=== PATIENT | male | born 1995 | race Caucasian/White ===

== ENCOUNTER 2017-03-23 14:00 | Outpatient (POV) | payer OTHER, BC, SELFPAY | END 2017-03-23 15:24 | disposition home or self-care (01) | PROVIDERS: PCP Podiatrist; Visit Provider Podiatrist | DX: S92.244D Nondisplaced fracture of medial cuneiform of right foot, subsequent encounter for fracture with routine healing (principal); S92.314D Nondisplaced fracture of first metatarsal bone, right foot, subsequent encounter for fracture with routine healing; S92.324D Nondisplaced fracture of second metatarsal bone, right foot, subsequent encounter for fracture with routine healing | CPT/HCPCS: 99213; 73630 ==

== ENCOUNTER 2017-04-13 16:15 | Outpatient (POV) | payer OTHER, BC, SELFPAY | END 2017-04-13 16:38 | disposition home or self-care (01) | PROVIDERS: Visit Provider Podiatrist | DX: S92.224D Nondisplaced fracture of lateral cuneiform of right foot, subsequent encounter for fracture with routine healing (principal); S92.314D Nondisplaced fracture of first metatarsal bone, right foot, subsequent encounter for fracture with routine healing; S92.324D Nondisplaced fracture of second metatarsal bone, right foot, subsequent encounter for fracture with routine healing | CPT/HCPCS: 99212; 73630 ==

== ENCOUNTER 2021-06-10 06:50 | Emergency (ER) | payer OTHER, SELFPAY ==
[2021-06-10] VITALS (8 sets, daily range): BP systolic 109–137; BP diastolic 52–78; PULSE 67–84; RESP 16–22; TEMP 36.8; O2SAT 97–100; BMI 22.2
--- NOTE | 2021-06-10 07:04 | CT_ITS ---
FINAL REPORT TECHNIQUE: 5 mm axial images were obtained from the lung bases to the pubic symphysis without contrast. Coronal reformatted images were performed and reviewed.This study was performed with techniques to keep radiation doses as low as reasonably achievable, (ALARA). Individualized dose reduction techniques using automated exposure control or adjustment of mA and/or kV according to the patient's size were employed. CLINICAL HISTORY: belly pain, LLQ PAIN, VOMITING FINDINGS: There is dependent atelectasis in the lung bases. There are no effusions. The gallbladder is unremarkable. The liver, spleen, adrenal glands, and pancreas have normal contours. The right kidney demonstrates no stones or hydronephrosis. The left kidney demonstrates several punctate stones throughout the kidney. There is mild fullness of the left renal pelvis. There is no hydroureter. There is a 4.5 mm stone in the left pelvis on image 89 of the axial images and 33 of the coronal images. This is indeterminate. This lies along the course of the ureter though without enlargement. The bladder is decompressed. There is some bladder wall thickening. The GI tract demonstrates no obstruction. The small bowel appears unremarkable. There is moderate to large amount of stool throughout the colon. The appendix is normal. There is no free air, free fluid, or inflammatory process. There is a tiny umbilical hernia containing fat. IMPRESSION: 1. The solid organs have a normal unenhanced appearance. 2. The gallbladder and appendix are normal. 3. There is no hydronephrosis. There are punctate stones in the left kidney. There is a 4.5 mm stone in the left mid pelvis. This lies along the course of the ureter. However, there is no ureteral enlargement. A ureteral stone is not excluded. 4. Bladder wall thickening 5. There is a moderate to large amount of stool throughout the colon. There is no obstruction. The small bowel is unremarkable. 6. There is no free air, free fluid, or inflammatory process. Authenticated by Sumeet Franco MD on 06/10/2021 07:51:19 AM [facility]
[2021-06-10 07:22] LABS: Basophils # 0.2 K/mm3 (0-0.2); Basophils % 1.6 % (0.1-2.0); Eosinophils # 0.6 K/mm3 (0.0-0.4); Hematocrit 45.7 % (42.0-52.0); Hemoglobin 15.2 g/dL (14.1-18.0); Lymphocytes # 2.1 K/mm3 (0.7-4.5); Lymphocytes % 18.9 % (10-50); Mean Corpuscular HGB Conc 33.2 g/dL (31.8-35.4); Mean Corpuscular Hemoglobin 28.7 pg (27.0-31.2); Mean Corpuscular Volume 86.4 fl (80-94); Monocytes # 0.6 K/mm3 (0.1-1.0); Monocytes % 5.6 % (1.7-9.3); Neutrophils # 7.6 K/mm3 (1.8-7.8); Neutrophils % 68.9 % (37.0-80.0); Platelet Count 297 K/mm3 (142-424); Red Cell Distribution Width 12.8 % (11.5-17.5); White Blood Count 11.1 K/mm3 (4.8-10.8)
--- NOTE | 2021-06-10 07:22 | PC.NURSE ---
pt to ct
[2021-06-10 07:23] LABS: Chloride 104 mmol/L (98-107); Potassium 4.3 mmoL/L (3.5-5.1); Sodium 137 mmol/L (136-145)
[2021-06-10 07:25] LABS: Blood Urea Nitrogen 16 mg/dl (9-20); Creatinine Clearance Estimated 126 mL/min (50-200); Estimated Glomerular Filt Rate 104 ml/min (>60); GFR (African American) 125 ML/MIN (>60)
[2021-06-10 07:26] LABS: Alanine Aminotransferase 88 U/L (12-78); Albumin Level 4.7 g/dl (3.5-5.0); Albumin/Globulin Ratio 1.7 (1.1-1.8); Alkaline Phosphatase 70 U/L (38-126); Amylase 84 U/L (30-110); Anion Gap 11.3 mEq/L (5-15); Aspartate Amino Transferase 50 U/L (17-59); Bilirubin,Total 0.4 mg/dl (0.2-1.3); Carbon Dioxide 26 mmol/L (22.0-30.0); Globulin 2.7 g/dL (1.3-3.2); Total Protein,Serum 7.4 g/dl (6.3-8.2)
[2021-06-10 07:27] LABS: Calcium 8.9 mg/dl (8.4-10.2); Glucose 115 mg/dl (74-100); Lipase 60 U/L (23-300)
[2021-06-10 07:32] LABS: C-Reactive Protein 0.6 mg/L (0-4)
--- NOTE | 2021-06-10 07:38 | HMH.EDNVD ---
ED Disposition Clinical Impression: Renal colic on left side Disposition: Home, Self-Care Condition on Discharge: Good Instructions: Kidney Stones -- Adult Additional Instructions: fluids and use meds and see urology Prescriptions: Ketorolac Tromethamine [Toradol 10mg tablet] 10 mg PO Q6HP PRN #10 tab MDD 40mg/day PRN Reason: Moderate To Severe Pain Transmission Status: Pending to [facility] Referrals: Pa Edgar MD [Primary Care Provider] - Feliberto Mukherjee MD [Staff Physician] - - Critical Care Critical Care Time: No Attestation: On 06/10/21, the high probability of a clinically significant, sudden or life threatening deterioration of the following system(s) required my full and direct attention, intervention and personal management. The time I documented below is in addition to time spent performing reported procedures but includes the following listed in this critical care notation. Medical Decision Making - Medical Records Medical records reviewed: Yes: I reviewed the patient's medical records. - Luis Inquiry Pt receiving controlled substance: No Vital Signs: 06/10/21 06:52 06/10/21 07:54 Temperature 98.3 F Temperature Source Oral Pulse Rate 68 Pulse Rate [Right] 67 Respiratory Rate 22 Blood Pressure 116/67 Blood Pressure [Right Arm] 120/78 Blood Pressure Mean [Right Arm] 92 Blood Pressure Source [Right Arm] Automatic Cuff 02 Sat by Pulse Oximetry 98 100 Oxygen Delivery Method Room Air Room Air - Lab Data Lab results reviewed: Yes: I reviewed the patient's lab results. Lab Results 06/10/21 07:06: WBC 11.1 H, RBC 5.30, Hgb 15.2, Hct 45.7, MCV 86.4, MCH 28.7, MCHC 33.2, RDW 12.8, Plt Count 297, MPV 8.0, Neut % (Auto) 68.9, Lymph % (Auto) 18.9, U[place] % (Auto) 5.6, Eos % (Auto) 5.0, Baso % (Auto) 1.6, Neut # (Auto) 7.6, Lymph # (Auto) 2.1, Upton # (Auto) 0.6, Eos # (Auto) 0.6 H, Baso # (Auto) 0.2, ESR 2 06/10/21 07:06: Sodium 137, Potassium 4.3, Chloride 104, Carbon Dioxide 26, Anion Gap 11.3, BUN 16, Creatinine 0.90, Estimated Creat Clear 126, Estimated GFR 104, Est GFR ( Amer) 125, Glucose 115 H, Calcium 8.9, Total Bilirubin 0.4, AST 50, ALT 88 H, Alkaline Phosphatase 70, C-Reactive Protein 0.6, Total Protein 7.4, Albumin 4.7, Globulin 2.7, Albumin/Globulin Ratio 1.7 06/10/21 07:06: Amylase 84, Lipase 60 Result diagrams: 06/10/21 07:06 06/10/21 07:06 Orders (Tests/Meds): ED MEDICATIONS Generic Name Dose Route Start Last Admin Trade Name Freq PRN Reason Stop Dose Admin Sodium Chloride 8 ml 06/10/21 07:21 Sodium Chloride 0.9% 10ml Vial IV 07/10/21 07:20 NEEDED PRN dilute pepcid Discontinued Medications Generic Name Dose Route Start Last Admin Trade Name Freq PRN Reason Stop Dose Admin Famotidine 20 mg 06/10/21 07:21 06/10/21 07:22 Famotidine 20mg/2ml Vial IV 06/10/21 07:22 20 mg ONCE ONE Administration Sodium Chloride 1,000 mls @ 999 mls/hr 06/10/21 07:15 06/10/21 07:21 Sod Chlor 0.9% 1000ml Bag IV 06/10/21 08:15 999 mls/hr .Q1H1M TERE Administration Ketorolac Tromethamine 30 mg 06/10/21 07:10 06/10/21 07:20 Ketorolac 30mg/Ml Vial IV 06/10/21 07:11 30 mg ONCE ONE Administration Metoclopramide HCl 10 mg 06/10/21 07:21 06/10/21 07:22 Metoclopramide Hcl 10mg/2ml Vial IVP 06/10/21 07:22 10 mg ONCE ONE Administration Ondansetron HCl 4 mg 06/10/21 07:10 06/10/21 07:20 Ondansetron 4mg/2ml Vial IV 06/10/21 07:11 4 mg ONCE ONE Administration ORDERS Category Date Time Status CT abdomen pelvis wo con Stat Cat Scan 06/10/21 07:04 Taken Prolactin Stat Lab 06/10/21 07:06 Received Urinalysis and Microscopic Stat Lab 06/10/21 07:10 Ordered - CT Data CT Scan: Abdomen, Pelvis Time Received: 08:[address] Reviewed: Yes: I have viewed the radiologist's interpretation Preliminary Findings: Abnormal Medical Decision Narrative: pt with renal colic and will nee
[2021-06-10 07:59] LABS: Erythrocyte Sedimentation Rate 2 mm/hr (0-15)
--- NOTE | 2021-06-10 08:27 | PC.NURSE ---
at bedside for update of POC
[2021-06-11 11:24] LABS: Prolactin 32.4 ng/mL (4.0-15.2)
== END 2021-06-10 08:44 | disposition home or self-care (01) ==
PROVIDERS: Emergency Provider Emergency Medicine; PCP Family Medicine
DX: N23 Unspecified renal colic (principal); R11.2 Nausea with vomiting, unspecified
CPT/HCPCS: 74176; 80053; 82150; 83690; 84146; 85025; 85651; 86140; 96365; 96375; 99283; J2405

== ENCOUNTER 2024-05-01 18:41 | Emergency (ER) | payer BC, SELFPAY ==
[2024-05-01 18:50] VITALS: BP 102/70; PULSE 78; RESP 14; TEMP 36.6; O2SAT 98; BMI 20.9
--- NOTE | 2024-05-01 19:10 | XR_ITS ---
PROCEDURE INFORMATION: Exam: XR Left Shoulder Exam date and time: 05/01/2024 7:11 PM Age: 28 years old Clinical indication: Injury or trauma; Fall; Blunt trauma (contusions or hematomas); Shoulder; Left; Additional info: Fall, posterior L shoulder pain TECHNIQUE: Imaging protocol: Radiologic exam of the left shoulder. Views: 2 or more views. COMPARISON: CR XR SHOULDER LT MIN 2V 05/01/2024 7:11 PM FINDINGS: Bones/joints: No fracture. Normal alignment. Soft tissues: Unremarkable. IMPRESSION: No acute findings.
--- NOTE | 2024-05-01 19:10 | XR_ITS ---
PROCEDURE INFORMATION: Exam: XR Left Humerus Exam date and time: 05/01/2024 7:13 PM Age: 28 years old Clinical indication: Injury or trauma; Fall; Blunt trauma (contusions or hematomas); Shoulder; Left; Additional info: Fall, posterior L shoudler pain TECHNIQUE: Imaging protocol: Radiologic exam of the left humerus. Views: 2 or more views. COMPARISON: CR XR SHOULDER LT MIN 2V 05/01/2024 7:11 PM FINDINGS: Bones/joints: No fracture. Normal alignment. Soft tissues: Unremarkable. IMPRESSION: No acute findings.
--- NOTE | 2024-05-01 19:11 | ED_ITS ---
Discharge Plan Disposition Patient Disposition: Home, Self-Care Prescriptions Prescriptions: New methocarbamol 750 mg tablet 1,500 mg PO TID 5 Days Qty: 30 0RF prednisone 20 mg tablet 40 mg PO DAILY 5 Days Qty: 10 0RF Referrals Follow up/Referrals: Edwin Littlejohn MD [Primary Care Provider] - See instructions Activity Restrictions/Add. Instructions Additional Instructions/Restrictions: Call your family doctor to establish care for this visit to the emergency department and schedule follow-up within 48 hours to ensure improvement. If you have any worsening of your condition or any other concerning signs or symptoms, return to the emergency department or your primary care doctor for further evaluation. Clinical Impressions Clinical Impression: Strain of trapezius muscle Acute neck sprain Qualifiers: Encounter type: initial encounter Qualified Code(s): S13.9XXA - Sprain of joints and ligaments of unspecified parts of neck, initial encounter Print Language Print Language: Singaporean Discharge ED Provider: Shay Duke General Adult HPI General Chief complaint: Extremity Injury, Upper Stated complaint: AO 05/01/24 1700 Left shoulder injury Time Seen by Provider: 05/01/24 18:46 Mode of Arrival: Ambulatory Source of Information: Patient Limitations: No Limitations Description of Symptoms (Recalled from ER Triage Doc. by RN): pt was running down a hill chasing his daughter on a sleight. pt reports he fell landing on his L shoulder. pt c/o throbbing, stabbing, 6/10 shoulder pain. pt reports having tingling in his fingers occasionally. pt denies any other injury. History of Present Illness HPI narrative: Please note that above description of symptoms, in this electronic medical record under categorization of recalled from ER triage doctor by RN are reflective of an initial nursing assessment, however, is not reflective of my full history and physical exam that was personally taken and clarified. Consequentially, this preceding description of symptoms, which may include the patient's categorized chief complaint in the EMR, do not reflect my personal clinical impression, and the ultimate description of history of present illness and patient stated complaints should be deferred to this section of the note. Unless stated otherwise or congruent with this section of the note, additional signs, symptoms, or incongruence should be interpreted as inaccurate with my clinical impression. Related Data Previous Rx's ?Medication ?Instructions ?Recorded methocarbamol 750 mg tablet 1,500 mg (2 x 750 mg) PO TID 5 05/01/24 days #30 tabs prednisone 20 mg tablet 40 mg (2 x 20 mg) PO DAILY 5 days 05/01/24 #10 tabs Allergies Allergy/AdvReac Type Severity Reaction Status Date / Time No Known Allergies Allergy Verified 05/01/24 18:55 [facility] Disclaimer: The information contained in this section may have been updated after the patient was seen, as this information can be updated by other users. Social History Smoking Status: Never smoker alcohol intake: never substance use type: denies use current occupational status: employed Travel in the last 8 weeks: Inside the [place] housing[place] house Have you lived/traveled outside US in past 30 days?: No Contact w/someone who lives/traveled outside US past 30 days?: No Exposure to someone with infectious disease in past 14 days?: No Do you have a fever (greater than 100.4 F or 38 C)?: No Have you tested positive for COVID-19: No Exposed to someone with COVID-19 in past 14 days?: No Do you have a sore throat?: No Do you have a cough?: No Do you have any weakness?: No Do you have any diarrhea?: No Are you experiencing any unusual bleeding?: No Do you have any muscle aches/pain?: Yes Do you have any abdominal pain?: No Are you experiencing loss of taste or smell?: No Other Medical History Have you received the Flu Vaccine for this season: No Have you received the Pneumonia Vaccine: No ROS Obtained: Yes All systems reviewed & no additional complaints except as documented Physical Exam General General appearance: alert Head Head exam: atraumatic and normocephalic Eye Eye exam: Present normal appearance, PERRL and EOMI Neck Neck exam: Present normal inspection, full ROM and trachea midline Respiratory Respiratory exam: Absent respiratory distress, wheezes, stridor, accessory muscle use or prolonged expiratory phase Cardiovascular Cardiovascular exam: Present other (Pulses equal symmetric in upper and lower extremities) Abdominal Exam Abdominal exam: Present soft; Absent distention, tenderness or pulsatile mass Extremities Exam Extremities exam: Present other (Significant tenderness with hyperalgesia to light skin touch trapezius muscle on the left side. Muscle spasm in the trapezius muscle. Neurovascular intact right upper extremity. No obvious outward signs of deformity. He does have bruising overlying posterior aspect of left shoulder); Absent edema Neurological Exam Neurological exam: Present alert, oriented X3 and CN II-XII intact; Absent motor sensory deficit Skin Skin exam: Present warm and dry; Absent diaphoresis or erythema Medical Decision Making Medical Records Medical records reviewed: Yes I reviewed the patient's medical records. Screening: Per USPSTF and CDC recommendations, given the prevalence of disease in our region, it is our hospital?s policy to screen for HIV and viral Hepatitis for all patients aged 18 and over and those with ongoing risk factors. Luis Inquiry Pt receiving controlled substance: No Luis was queried for this patient: No Vital Signs: 05/01/24 18:50 Temperature 97.9 F Temperature Source Oral Pulse Rate [Left] 78 Respiratory Rate 14 Blood Pressure [Right Arm] 102/70 L Blood Pressure Mean [Right Arm] 80 Blood Pressure Source [Right Arm] Automatic Cuff Blood Pressure Position [Right Arm] Sitting 02 Sat by Pulse Oximetry 98 Oxygen Delivery Method Room Air Orders (Tests/Meds): ED MEDICATIONS Discontinued Medications Generic Name Dose Route Start Last Admin Trade Name Antolin PRN Reason Stop Dose Admin Dexamethasone 10 mg 05/01/24 19:05 05/01/24 19:14 Dexamethasone 4mg Tablet PO 05/01/24 19:06 10 mg ONCE ONE Administration Methocarbamol 1,500 mg 05/01/24 19:05 05/01/24 19:14 Methocarbamol 500mg Tablet PO 05/01/24 19:06 1,500 mg ONCE ONE Administration Oxycodone HCl 5 mg 05/01/24 19:05 05/01/24 19:14 Oxycodone 5mg Immediate Release Tablet PO 05/01/24 19:06 5 mg ONCE ONE Administration ORDERS Category Date Time Status Humerus XR left [XR humerus LT] Stat Exams 05/01/24 19:10 Taken Shoulder XR left minimum 2 views [XR shoulder LT min 2V Exams 05/01/24 19:10 Taken ] Stat Medical Decision Narrative: 28-year-old male no relevant medical history presenting with left shoulder pain. Patient states that he was running in the snow chasing after his daughter who was sliding to prevent her from injuring herself when he slipped, fell forward, landed directly on his left shoulder and rolled a couple of times. No loss of consciousness. Having significant pain in his left shoulder primarily posteriorly and running up his neck. No midline spinal tenderness, all muscular on the left with associated muscle spasm. No numbness, weakness, tingling, bowel or bladder dysfunction, difficulty walking, or any other concerns. Pain is moderate in intensity, has not taken anything for the pain. History was obtained via conversation with patient and . On arrival, patient hemodynamically stable, alert, oriented x4, appropriate, GCS 15, moving all extremities spontaneously, pupils equal and reactive to light. Full physical exam performed and significant for well-appearing male no acute distress. Guarding left shoulder secondary to pain, but overall unremarkable exam. Significant tenderness with hyperalgesia to light skin touch trapezius muscle on the left side. Muscle spasm in the trapezius muscle. Neurovascular intact right upper extremity. No obvious outward signs of deformity. He does have bruising overlying posterior aspect of left shoulder. Differential includes sprain, strain, among others. Initial set of vitals 102/70, heart rate 78, 100% on room air and breathing 14 times a minute. Bilateral breath sounds present. Patient was given oxycodone and Robaxin as well as Decadron p.o. for symptomatic management and correction of underlying abnormalities. Workup independently interpreted and significant for no acute bony abnormality. See radiology read for full review of final re sults. On reevaluation, patient states he is feeling a little better after meds given here in the emergency department. Given patient presentation, workup, history, this most likely represents soft tissue strain versus sprain after fall. Because patient at baseline without signs or symptoms of clinical decompensation, deemed appropriate for discharge. Results were relayed to patient who voiced understanding and were agreeable to outpatient management and follow up. I discussed my clinical impression with patient and answered all questions. At this time, the evidence for any other entities in the differential is insufficient to warrant any further testing or ED observation. This was explained as well. Advisory was given that persistent or worsening symptoms require further evaluation. I confirmed the understanding of this discussion. Debt Counselor disclaimer Much of this encounter note is an electronic final inspector shuttle spoken language to printed text. Electronic final inspector shuttle of the spoken language may permit errors. Although I have reviewed the note, some errors may still exist. Critical Care Critical Care Time Critical Care Time: No
[2024-05-01] MEDS: DEXAMETHASONE 4MG TABLET 10 MG PO (19:14)
[2024-05-01] MEDS: METHOCARBAMOL 500MG TABLET 1500 MG PO (19:14)
[2024-05-01] MEDS: OXYCODONE 5MG IMMEDIATE RELEASE TABLET 5 MG PO (19:14)
[2024-05-01 19:51] VITALS: BP 124/64; PULSE 84; RESP 20; TEMP 37.1; O2SAT 98
== END 2024-05-01 19:55 | disposition home or self-care (01) ==
PROVIDERS: Emergency Provider Emergency Medicine; PCP Internal Medicine Adolescent Medicine
DX: S13.9XXA Sprain of joints and ligaments of unspecified parts of neck, initial encounter (principal); S46.819A Strain of other muscles, fascia and tendons at shoulder and upper arm level, unspecified arm, initial encounter; M25.512 Pain in left shoulder; R20.2 Paresthesia of skin; Y93.23 Activity, snow (alpine) (downhill) skiing, snowboarding, sledding, tobogganing and snow tubing
CPT/HCPCS: 73030; 73060; 99283; J8540

== ENCOUNTER 2024-05-31 12:32 | Emergency (ER) | payer BC, SELFPAY ==
[2024-05-31 13:25] VITALS: BP 118/57; PULSE 87; RESP 19; TEMP 36.9; O2SAT 98; BMI 22.1
[2024-05-31 13:44] LABS: UTC Influenza A Antigen Negative (Negative)
[2024-05-31 13:45] LABS: UTC Influenza B Antigen Negative (Negative)
--- NOTE | 2024-05-31 13:48 | EXP.UTC ---
Discharge Plan Disposition Patient Disposition: Home, Self-Care Condition: Good Prescriptions Prescriptions: New ondansetron 4 mg tablet,disintegrating 4 mg PO Q8H PRN (Reason: nausea and vomiting) Qty: 10 0RF Referrals Follow up/Referrals: Edwin Littlejohn MD [Primary Care Provider] - See instructions Activity Restrictions/Add. Instructions Additional Instructions/Restrictions: Drink extra fluids with and between meals. If you have difficulty drinking, try very small amounts of water or suck on ice chips. ? Avoid fruit juices, as these do not replace minerals and can actually increase diarrhea. ? Children and adults can use sports drinks to replenish electrolytes. Younger children and infants should use products formulated for children, like oral rehydration solutions. ? Eat food in small amounts and let your stomach recover. ? Get lots of rest. You may feel tired or weak. ? No greasy or fried foods for the next 24-48 hours BRAT diet Bananas Rice Apples and [place] ? Make sure to drink plenty of liquids ? Return if needed ? Straight to ER if any life threatening symptoms ? Zofran as prescribed ? Follow up with family doctor in the next 48-72 hours if no improvement or any worsening of symptoms Clinical Impressions Clinical Impression: Viral syndrome Stand Alone Forms Stand Alone Forms: Work/School Release Instructions Patient Instructions: Nausea and Vomiting-Adult Print Language Print Language: Frisian Discharge ED Provider: Mindy Izquierdo [facility] [place] General Stated complaint: chest congestion vomiting ba Mode of Arrival: Ambulatory Source of Information: Patient Limitations: No Limitations Time Seen by Provider: 05/31/24 13:49 Description of Symptoms (Recalled from Triage Doc. by RN): PATIENT C/O VOMITING AND FEELING RUN DOWN SINCE YESTERDAY HEENT Symptoms (Recalled from RN notes): No Resp Symptoms (Recalled from RN notes): No Skin Symptoms (Recalled from RN notes): No MS Symptoms (Recalled from RN notes): No Functional Status (Recalled from RN notes): WNL History of Present Illness Provider Complaint: Patient states that yesterday he started having nausea and vomiting and feeling tired and achy States vomiting stopped around 3am this morning but still having some nausea and fatigue so he came in Related Data Previous Rx's ?Medication ?Instructions ?Recorded ondansetron 4 mg disintegrating 4 mg PO Q8H PRN nausea and 05/31/24 tablet vomiting #10 tabs Allergies Allergy/AdvReac Type Severity Reaction Status Date / Time No Known Allergies Allergy Verified 05/01/24 18:55 Worker's Comp Is this a Worker's Comp case?: No PFSH [facility], 1928[facility]1983 Disclaimer: The information contained in this section may have been updated after the patient was seen, as this information can be updated by other users. Medical History (Updated 05/31/24 @ 13:55 by Mindy Izquierdo APRN) Kidney stone Asthma Social History Smoking Status: Never smoker alcohol intake: never substance use type: denies use current occupational status: employed Travel in the last 8 weeks: Inside the [place] housing: house Have you lived/traveled outside US in past 30 days?: No Contact w/someone who lives/traveled outside US past 30 days?: No Exposure to someone with infectious disease in past 14 days?: No Do you have a fever (greater than 100.4 F or 38 C)?: No Have you tested positive for COVID-19: No Exposed to someone with COVID-19 in past 14 days?: No Do you have a sore throat?: Yes Do you have a cough?: Yes Do you have any weakness?: No Do you have any diarrhea?: No Are you experiencing any unusual bleeding?: No Do you have any muscle aches/pain?: No Do you have any abdominal pain?: Yes Are you experiencing loss of taste or smell?: No ROS Obtained: Yes All systems reviewed & no additional complaints except as documented and Yes Systems reviewed as appropriate & no additional complaints except as documented Constitutional Constitutional: Reports system reviewed and no additional complaints, except as documented, Reports as per HPI, Reports body ache and Reports fatigue ENT Ears, Nose, Mouth, and Throat: Reports system reviewed and no additional complaints, except as documented and Reports as per HPI Cardiovascular Cardiovascular: Reports system reviewed and no additional complaints, except as documented and Reports as per HPI Respiratory Respiratory: Reports system reviewed and no additional complaints, except as documented and Reports as per HPI Gastrointestinal Gastrointestingal: Reports system reviewed and no additional complaints, except as documented, as per HPI, nausea and vomiting Genitourinary Male Genitourinary: Reports system reviewed and no additional complaints, except as documented and Reports as per HPI Endocrine Endocrine: Reports fatigue Physical Exam General General appearance: alert and in no apparent distress ENT ENT exam: Present normal exam, normal oropharynx, mucous membranes moist and TM's normal bilaterally Respiratory Respiratory exam: Present normal lung sounds bilaterally; Absent respiratory distress or wheezes Cardiovascular Cardiovascular exam: Present regular rate, normal rhythm and normal heart sounds Abdominal Exam Abdominal exam: Present soft and normal bowel sounds; Absent distention or tenderness Neurological Exam Neurological exam: Present alert, oriented X3 and normal gait Medical Decision Making Medical Records Screening: Per USPSTF and CDC recommendations, given the prevalence of disease in our region, it is our hospital?s policy to screen for HIV and viral Hepatitis for all patients aged 18 and over and those with ongoing risk factors. Luis Inquiry Pt receiving controlled substance: No Luis was queried for this patient: No Vital Signs: 05/31/24 13:25 Temperature 98.5 F Temperature Source Oral Pulse Rate [Left Brachial] 87 Respiratory Rate 19 Blood Pressure [Left Arm] 118/57 L Blood Pressure Mean [Left Arm] 77 Blood Pressure Source [Left Arm] Automatic Cuff Blood Pressure Position [Left Arm] Sitting 02 Sat by Pulse Oximetry 98 Oxygen Delivery Method Room Air Lab Data Lab results reviewed: Yes I reviewed the patient's lab results. Lab Results 05/31/24 13:26: Influenza Type A Ag Negative, Influenza Type B Ag Negative
[2024-05-31 13:56] VITALS: BP 118/57; PULSE 87; RESP 19; TEMP 36.9; O2SAT 98
== END 2024-05-31 13:59 | disposition home or self-care (01) ==
PROVIDERS: Emergency Provider Nurse Practitioner; PCP Internal Medicine Adolescent Medicine
DX: B34.9 Viral infection, unspecified (principal)
CPT/HCPCS: 87804; 99213; G0381

== ENCOUNTER 2024-06-21 04:55 | Emergency (ER) | payer BC, SELFPAY ==
[2024-06-21 04:57] VITALS: BP 144/91; PULSE 70; RESP 16; TEMP 36.9; O2SAT 99; BMI 22.2
--- NOTE | 2024-06-21 05:00 | XR_ITS ---
PROCEDURE INFORMATION: Exam: XR Chest Exam date and time: 06/21/2024 5:05 AM Age: 29 years old Clinical indication: Shortness of breath; Additional info: SOA flu+ TECHNIQUE: Imaging protocol: Radiologic exam of the chest. Views: 2 views. COMPARISON: CR XR HUMERUS LT 05/01/2024 7:13 PM FINDINGS: Lungs: Unremarkable. No consolidation. Pleural spaces: Unremarkable. No pleural effusion. No pneumothorax. Heart/Mediastinum: Unremarkable. No cardiomegaly. Bones/joints: Unremarkable. IMPRESSION: No acute findings.
--- NOTE | 2024-06-21 05:01 | HMH.EDCP ---
Discharge Plan Disposition Patient Disposition: Home, Self-Care Condition: Good Prescriptions Prescriptions: No Action oseltamivir 75 mg capsule 75 mg PO BID 5 Days Qty: 10 0RF [id number]-[id number] [Bromfed DM] 2-30-10 mg/5 mL syrup 5 ml PO Q4-6H PRN (Reason: cold symptoms) Qty: 118 0RF Referrals Follow up/Referrals: Edwin Littlejohn MD [Primary Care Provider] - See instructions Activity Restrictions/Add. Instructions Additional Instructions/Restrictions: You were evaluated in the ER and are appropriate for discharge at this time. Drink plenty of fluids including water, Gatorade, Pedialyte to maintain good hydration. Continue taking your home medications as prescribed. Make an appointment with your primary care doctor for reevaluation in 2 to 3 days. Return to the ER with new, worsening, or otherwise concerning symptoms. Clinical Impressions Clinical Impression: Influenza A, Cough, Nasal congestion Print Language Print Language: Mohawk Discharge ED Provider: Keiry Rajput HPI General Chief Complaint: Upper Respiratory Infection Stated Complaint: Flu A+, trouble breathing Time Seen by Provider: 06/21/24 05:00 History of Present Illness HPI narrative: Otherwise healthy 29-year-old male presents to the ER with complaints of difficulty catching his breath. He is known to be positive for flu and has been on Tamiflu and Bromfed for the last 48 hours. Patient has had symptoms for the last 4 days. He is having cough, congestion, body aches, no nausea, vomiting, or diarrhea. No headaches, dizziness, numbness, tingling, weakness, no other associated symptoms. He has no chest pain, no recent long distance travel, no history of blood clot, no racing heart, no palpitations. He thought his shortness of breath could be related to panic attack/anxiety. No cardiac history. No other daily medications, no known drug allergies. Related Data Previous Rx's ?Medication ?Instructions ?Recorded jqolnbhzchacbvf-atlrkxxfcsegurg-QG 5 ml PO Q4-6H PRN cold symptoms 06/18/24 2 mg-30 mg-10 mg/5 mL oral syrup #118 mL (Bromfed DM) oseltamivir 75 mg capsule 75 mg PO BID 5 days #10 caps 06/18/24 Allergies Allergy/AdvReac Type Severity Reaction Status Date / Time No Known Allergies Allergy Verified 06/18/24 19:07 [facility] Disclaimer: The information contained in this section may have been updated after the patient was seen, as this information can be updated by other users. Medical History Kidney stone Asthma Social History Smoking Status: Never smoker alcohol intake: never substance use type: denies use current occupational status: employed Travel in the last 8 weeks: Inside the [place] housing: house Have you lived/traveled outside US in past 30 days?: No Contact w/someone who lives/traveled outside US past 30 days?: No Exposure to someone with infectious disease in past 14 days?: Yes Do you have a fever (greater than 100.4 F or 38 C)?: No Have you tested positive for COVID-19: No Exposed to someone with COVID-19 in past 14 days?: No Do you have a sore throat?: No Do you have a cough?: No Do you have any weakness?: No Do you have any diarrhea?: No Are you experiencing any unusual bleeding?: No Do you have any muscle aches/pain?: No Do you have any abdominal pain?: No Are you experiencing loss of taste or smell?: No Other Medical History Have you received the Flu Vaccine for this season: No Have you received the Pneumonia Vaccine: No ROS Obtained: Yes Systems reviewed as appropriate & no additional complaints except as documented per HPI Physical Exam General General appearance: alert and in no apparent distress Head Head exam: atraumatic and normocephalic Eye Eye exam: Present PERRL and EOMI ENT ENT exam: Present mucous membranes moist Neck Neck exam: Present normal inspection and full ROM Chest Chest inspection: Present symmetric chest wall rise Respiratory Respiratory exam: Present normal lung sounds bilaterally and other (Saturating 99% on room air); Absent respiratory distress, wheezes or stridor Cardiovascular Cardiovascular exam: Present regular rate and normal rhythm Abdominal Exam Abdominal exam: Present soft; Absent distention or tenderness Extremities Exam Extremities exam: Present full ROM; Absent edema Neurological Exam Neurological exam: Present alert and oriented X3; Absent motor sensory deficit Psychiatric Psychiatric exam: Present normal affect and normal mood Skin Skin exam: Present warm and dry HEART Score HEART Score HEART Score assessment performed?: Yes History (anamnesis): Slightly suspicious ECG: Normal Age: <45 years Risk factors: No known risk factors Troponin: </= normal limit HEART Score: 0 Critical Care Critical Care Time Critical Care Time: No Medical Decision Making Medical Records Medical records reviewed: Yes I reviewed the patient's medical records. MR Comment: Patient positive for flu on 06/18/2024 per my review of note from Melissa Pedro. Prescribed Tamiflu and Bromfed and recommended to take Tylenol and ibuprofen as needed. Luis Inquiry Pt receiving controlled substance: No Vital Signs Vital Signs: 06/21/24 04:57 Temperature 98.5 F Temperature Source Oral Pulse Rate [Radial] 70 Respiratory Rate 16 Blood Pressure [Right Arm] 144/91 H Blood Pressure Mean [Right Arm] 108 Blood Pressure Position [Right Arm] Sitting 02 Sat by Pulse Oximetry 99 Oxygen Delivery Method Room Air Lab Data Labs: Lab Results 06/21/24 05:00: VBG pH 7.36, VBG pCO2 50.7, VBG pO2 32.9, VBG HCO3 28.1, VBG Total CO2 29.7 H, VBG O2 Saturation 63.5, VBG Base Excess 2.7 H, VBG Lactic Acid 2.8 H 06/21/24 05:06: WBC 5.1, RBC 5.74, Hgb 15.8, Hct 47.6, MCV 82.9, MCH 27.5, MCHC 33.2, RDW 11.7, Plt Count 206, MPV 10.0, Neut % (Auto) 27.6 L, Lymph % (Auto) 57.2 H, [place] % (Auto) 13.4 H, Eos % (Auto) 0.8, Baso % (Auto) 0.6, Neut # (Auto) 1.4 L, Lymph # (Auto) 2.9, [place] # (Auto) 0.7, Eos # (Auto) 0.0, Baso # (Auto) 0.0, Sodium 139, Potassium 4.4, Chloride 98, Carbon Dioxide 29, Anion Gap 16.4 H, BUN 7 L, Creatinine 0.80, Estimated Creat Clear 138, Estimated GFR 116, Est GFR ( Amer) 140, Glucose 128 H, Calcium 9.5, Total Bilirubin 0.6, AST 33, ALT 46, Alkaline Phosphatase 88, Troponin I < 0.01, Total Protein 7.5, Albumin 4.8, Globulin 2.7, Albumin/Globulin Ratio 1.8 06/21/24 05:06 06/21/24 05:06 Response Orders (Tests/Meds): ED MEDICATIONS Generic Name Dose Route Start Last Admin Trade Name Antolin PRN Reason Stop Dose Admin Lactated Ringer's 1,000 mls @ 999 mls/hr 06/21/24 05:29 06/21/24 05:37 Lactated Ringer's 1000 Ml Bag IV 06/21/24 06:29 999 mls/hr .Q1H1M ONE Administration ORDERS Category Date Time Status CXR 2 view (NOT portable) [XR chest 2V] Stat Exams 06/21/24 05:00 Completed CBC w/Auto Diff [Complete Blood Count Auto Diff] Stat Lab 06/21/24 05:06 Results CMP [Comprehensive Metabolic Panel] Stat Lab 06/21/24 05:06 Completed Trop I [Troponin I] Stat Lab 06/21/24 05:06 Completed Troponin I Q3H Lab 06/21/24 08:15 Ordered Troponin I Q3H Lab 06/21/24 11:15 Ordered VBG [Venous Blood Gas] Stat RT 06/21/24 05:00 Completed ECG Request Stat Y 06/21/24 05:00 Ordered MDM Narrative Medical Decision Narrative: In summary, this otherwise healthy 29-year-old male known to be positive for flu A presents to the emergency department today with shortness of breath. On initial evaluation patient is hemodynamically stable, afebrile, saturating 99% on room air with good air movement throughout, no adventitious sounds, no respiratory distress, no peripheral edema, cardiopulmonary exam benign, remainder of exam reassuring. Differential diagnosis includes but is not limited to expected course of influenza, also considered bronchitis, pneumonia, I considered ACS which I believed to be less likely since patient does not have chest pain or known risk factors, also considered the possibility of PE but patient is PERC negative. Additional testing for PE not indicated at this time. Based on these concerns, I ordered serum labs, cardiac workup, chest x-ray. Chest x-ray personally interpreted does not demonstrate acute intrathoracic abnormality, see radiology read for final interpretation. Labs reviewed by me demonstrate no leukocytosis or anemia, platelets normal. Patient does have a lymphocyte and monocyte predominance on CBC which is consistent with viral infection. VBG with normal pH, he does have elevated lactic on VBG, patient is receiving IV fluids. CMP with reassuring kidney function, no actionable electrolyte abnormalities, troponin undetectably low less than 0.01. Given patient's duration of symptoms I do not believe serial troponins are indicated. Patient finished IV fluids and continues to be stable. He is resting comfortably. I reviewed all results with him and he is reassured by the workup. He is appropriate for discharge at this time. Patient was given instructions on symptomatic management, follow up instructions, and return precautions for the emergency department. Patient indicated understanding and was discharged in stable condition.
--- NOTE | 2024-06-21 05:10 | ECG_ITS ---
APPROVED REPORT Exam: Resting ECG HR:80 bpm ECG Measurements Heart Rate 80 AXES ND 138 P 70 QRSd 102 QRS 106 QT 344 T 60 QTc 380 Conclusion SINUS RHYTHM WITH SINUS ARRHYTHMIA INDETERMINATE AXIS NO STEMI Electronically signed by : CYNDI MCKENNA, 06/22/2024 07:05:56
[2024-06-21 05:12] LABS: Basophils % 0.6 % (0.1-2.0); Eosinophils % 0.8 % (0.1-12.0); Hematocrit 47.6 % (42.0-52.0); Hemoglobin 15.8 g/dL (14.1-18.0); Lymphocytes # 2.9 K/mm3 (0.7-4.5); Lymphocytes % 57.2 % (10-50); Mean Corpuscular HGB Conc 33.2 g/dL (31.8-35.4); Mean Corpuscular Hemoglobin 27.5 pg (27.0-31.2); Mean Corpuscular Volume 82.9 fl (80-94); Monocytes # 0.7 K/mm3 (0.1-1.0); Monocytes % 13.4 % (1.7-9.3); Neutrophils # 1.4 K/mm3 (1.8-7.8); Neutrophils % 27.6 % (37.0-80.0); Platelet Count 206 K/mm3 (142-424); Red Blood Count 5.74 M/mm3 (4.60-6.20); Red Cell Distribution Width 11.7 % (11.5-17.5); White Blood Count 5.1 K/mm3 (4.8-10.8)
[2024-06-21 05:14] LABS: VBG Base Excess 2.7 mmol/L (-2.4-2.3); VBG HCO3 28.1 mmol/L (23-30); VBG Oxygen Saturation 63.5 % (50-70); VBG PCO2 50.7 mmol/L (35-51); VBG PH 7.36 mmol/L (7.31-7.41); VBG PO2 32.9 mmol/L (28-40); VBG Total CO2 29.7 mmol/L (23-27)
--- NOTE | 2024-06-21 05:15 | PC.NURSE ---
pt ambulatory to radiology at this time.
[2024-06-21 05:16] LABS: Lactate Venous 2.8 mmol/L (0.4-2.0)
[2024-06-21 05:16] LABS: MANUAL DIFFERENTIAL MANUAL DIFFERENTIAL (MANUAL DIFF)
--- NOTE | 2024-06-21 05:19 | PC.NURSE ---
pt returned from radiology without incident
[2024-06-21 05:20] LABS: Albumin Level 4.8 g/dl (3.5-5.0); Chloride 98 mmol/L (98-107)
[2024-06-21 05:21] LABS: Potassium 4.4 mmoL/L (3.5-5.1); Sodium 139 mmol/L (136-145)
[2024-06-21 05:23] LABS: Alanine Aminotransferase 46 U/L (12-78); Anion Gap 16.4 mEq/L (5-15); Aspartate Amino Transferase 33 U/L (17-59); Blood Urea Nitrogen 7 mg/dl (9-20); Carbon Dioxide 29 mmol/L (22.0-30.0); Creatinine Clearance Estimated 138 mL/min (50-200); Estimated Glomerular Filt Rate 116 ml/min (>60); GFR (African American) 140 ML/MIN (>60)
[2024-06-21 05:24] LABS: Albumin/Globulin Ratio 1.8 (1.1-1.8); Alkaline Phosphatase 88 U/L (38-126); Bilirubin,Total 0.6 mg/dl (0.2-1.3); Calcium 9.5 mg/dl (8.4-10.2); Globulin 2.7 g/dL (1.3-3.2); Glucose 128 mg/dl (74-100); Total Protein,Serum 7.5 g/dl (6.3-8.2)
[2024-06-21] MEDS: LACTATED RINGERS 1000ML 1,000 ML 999 ML IV (05:37)
[2024-06-21 05:38] LABS: Troponin I < 0.01 ng/ml (0.00-0.034)
--- NOTE | 2024-06-21 05:51 | PC.NURSE ---
provider at the bedside updating pt on POC
[2024-06-21 06:00] LABS: Lymphocytes % 57 % (10-50); Monocytes % 1 % (2-9); Neutrophils % 41 % (42-76); Platelet Estimate Normal; RBC Morphology Normal; Total Cells Counted 100
[2024-06-21 06:22] VITALS: BP 164/62; PULSE 70; RESP 14; TEMP 36.6; O2SAT 100
[2024-06-21 09:15] LABS: Reflex Lactic Add Lactic Reflex
== END 2024-06-21 06:24 | disposition home or self-care (01) ==
PROVIDERS: Emergency Provider Emergency Medicine; PCP Internal Medicine Adolescent Medicine
DX: J09.X2 Influenza due to identified novel influenza A virus with other respiratory manifestations (principal)
CPT/HCPCS: 71046; 80053; 82803; 84484; 85007; 85025; 85027; 93005; 96360; 99284; J7120

== ENCOUNTER 2024-07-11 23:17 | Emergency (ER) | payer BC, SELFPAY ==
--- NOTE | 2024-07-11 23:24 | HMH.EDGENADL ---
Discharge Plan Disposition Patient Disposition: Home, Self-Care Condition: Good Prescriptions Prescriptions: No Action oseltamivir 75 mg capsule 75 mg PO BID 5 Days Qty: 10 0RF [id number]-[id number] [Bromfed DM] 2-30-10 mg/5 mL syrup 5 ml PO Q4-6H PRN (Reason: cold symptoms) Qty: 118 0RF Referrals Follow up/Referrals: Edwin Littlejohn MD [Primary Care Provider] - See instructions Activity Restrictions/Add. Instructions Additional Instructions/Restrictions: Please follow-up with your primary care provider. Please return to the emergency department if you develop any new or worsening symptoms or become concerned for your health. Continue taking the Prilosec for the next few weeks or until symptoms resolve. Consider Pepcid. Consider Maalox or Tums. Clinical Impressions Clinical Impression: Epigastric abdominal pain Instructions Patient Instructions: DI for Acute Abdominal Pain Print Language Print Language: Latvian Discharge ED Provider: Hai Guillermo General Adult HPI General Chief complaint: Abdominal Pain Stated complaint: tight abd pain, vomiting Time Seen by Provider: 07/11/24 23:24 History of Present Illness HPI narrative: 29-year-old male with no significant past medical history presents for epigastric abdominal pain. Is been ongoing for the last couple of days. Associated with some nausea and and vomiting. Having trouble keeping food down. Denies any right upper quadrant pain. Denies diarrhea or fever. His primary concern is pain. No history of significant alcohol use, no prior abdominal surgery. No history of pancreatitis. Started taking Prilosec today. Related Data Previous Rx's ?Medication ?Instructions ?Recorded wnuuklcuaoptehj-qdvghcjfbcnnfpt-UY 5 ml PO Q4-6H PRN cold symptoms 06/18/24 2 mg-30 mg-10 mg/5 mL oral syrup #118 mL (Bromfed DM) oseltamivir 75 mg capsule 75 mg PO BID 5 days #10 caps 06/18/24 Allergies Allergy/AdvReac Type Severity Reaction Status Date / Time No Known Allergies Allergy Verified 06/18/24 19:07 [facility] Disclaimer: The information contained in this section may have been updated after the patient was seen, as this information can be updated by other users. Medical History Kidney stone Asthma Social History Smoking Status: Never smoker alcohol intake: never substance use type: denies use current occupational status: employed Travel in the last 8 weeks: [place] the [place] housing[place] house Have you lived/traveled outside US in past 30 days?: No Contact w/someone who lives/traveled outside US past 30 days?: No Exposure to someone with infectious disease in past 14 days?: No Do you have a fever (greater than 100.4 F or 38 C)?: No Have you tested positive for COVID-19: No Exposed to someone with COVID-19 in past 14 days?: No Do you have a sore throat?: No Do you have a cough?: No Do you have any weakness?: No Do you have any diarrhea?: No Are you experiencing any unusual bleeding?: No Do you have any muscle aches/pain?: No Do you have any abdominal pain?: Yes Are you experiencing loss of taste or smell?: No Other Medical History Have you received the Flu Vaccine for this season: No Have you received the Pneumonia Vaccine: No ROS Obtained: Yes All systems reviewed & no additional complaints except as documented Physical Exam General General appearance: alert and in no apparent distress Head Head exam: atraumatic and normocephalic Eye Eye exam: Present normal appearance, PERRL and EOMI ENT ENT exam: Present normal oropharynx and normal external ear exam Neck Neck exam: Present normal inspection and full ROM Chest Chest inspection: Present normal inspection and symmetric chest wall rise; Absent tenderness Respiratory Respiratory exam: Present normal lung sounds bilaterally; Absent respiratory distress Cardiovascular Cardiovascular exam: Present regular rate and normal rhythm Abdominal Exam Abdominal exam: Present soft; Absent distention, tenderness or guarding Extremities Exam Extremities exam: Present normal inspection; Absent edema or joint swelling Back Exam Back exam: Present normal inspection; Absent tenderness Neurological Exam Neurological exam: Present alert and oriented X3; Absent motor sensory deficit Psychiatric Psychiatric exam: Present normal affect and normal mood Skin Skin exam: Present warm, dry and normal color Lymphatic Lymphatic Findings: no adenopathy Medical Decision Making Medical Records Medical records reviewed: Yes I reviewed the patient's medical records. Screening: Per USPSTF and CDC recommendations, given the prevalence of disease in our region, it is our hospital?s policy to screen for HIV and viral Hepatitis for all patients aged 18 and over and those with ongoing risk factors. Luis Inquiry Pt receiving controlled substance: No Luis was queried for this patient: No Vital Signs: 07/11/24 23:25 07/12/24 02:31 Temperature 98.0 F 97.9 F Temperature Source Oral Oral Pulse Rate 54 L Pulse Rate [Right] 84 Respiratory Rate 16 16 Blood Pressure 103/60 L Blood Pressure [Right Arm] 122/79 Blood Pressure Mean [Right Arm] 93 Blood Pressure Source Automatic Cuff Blood Pressure Position Supine 02 Sat by Pulse Oximetry 95 Oxygen Delivery Method Room Air Room Air Lab Data Lab results reviewed: Yes I reviewed the patient's lab results. Lab Results 07/11/24 23:30: WBC 9.5, RBC 5.33, Hgb 14.9, Hct 44.0, MCV 82.6, MCH 28.0, MCHC 33.9, RDW 12.0, Plt Count 264, MPV 10.2, Neut % (Auto) 53.6, Lymph % (Auto) 36.4, [place] % (Auto) 8.1, Eos % (Auto) 1.3, Baso % (Auto) 0.4, Neut # (Auto) 5.1, Lymph # (Auto) 3.5, [place] # (Auto) 0.8, Eos # (Auto) 0.1, Baso # (Auto) 0.0, Sodium 138, Potassium 3.8, Chloride 103, Carbon Dioxide 28, Anion Gap 10.8, BUN 10, Creatinine 0.80, Estimated Creat Clear 138, Estimated GFR 116, Est GFR ( Amer) 140, Glucose 94, Calcium 10.1, Total Bilirubin 1.1, AST 27, ALT 34, Alkaline Phosphatase 70, Total Protein 8.2, Albumin 5.2 H, Globulin 3.0, Albumin/Globulin Ratio 1.7, Lipase 49 07/11/24 23:30 07/11/24 23:30 Orders (Tests/Meds): ED MEDICATIONS Discontinued Medications Generic Name Dose Route Start Last Admin Trade Name Freq PRN Reason Stop Dose Admin Acetaminophen 1,000 mg 07/11/24 23:36 07/11/24 23:56 Acetaminophen 500mg Tab PO 07/11/24 23:37 1,000 mg ONCE ONE Administration Belladonna Alkaloids 60 ml 07/11/24 23:36 07/11/24 23:54 Belladonna Alkaloids 60 Ml Ml PO 07/11/24 23:37 60 ml ONCE ONE Administration Famotidine 20 mg 07/11/24 23:36 07/11/24 23:55 Famotidine 20mg/2ml Vial IV 07/11/24 23:37 20 mg ONCE ONE Administration Sodium Chloride 1,000 mls @ 999 mls/hr 07/11/24 23:45 07/11/24 23:54 Sod Chlor 0.9% 1000ml Bag IV 07/12/24 00:45 999 mls/hr .Q1H1M TERE Administration Iopamidol 75 ml 07/12/24 00:46 07/12/24 00:46 Iopamidol-370 (76%);100ml Bottle IV 07/12/24 00:47 75 ml ONCE ONE Administration Ondansetron HCl 4 mg 07/11/24 23:36 07/11/24 23:55 Ondansetron 4mg/2ml Vial IV 07/11/24 23:37 4 mg ONCE ONE Administration Sodium Chloride 8 ml 07/11/24 23:36 Sodium Chloride 0.9% 10ml Vial IV 08/10/24 23:35 NEEDED PRN dilute pepcid Sodium Chloride 10 ml 07/12/24 00:46 07/12/24 00:46 Sodium Chloride 0.9% 10ml Syr (Rad Only) IV 08/11/24 00:45 10 ml NEEDED PRN Administration Maintain IV Site ORDERS Category Date Time Status CT abdomen pelvis w con Stat Cat Scan 07/11/24 23:36 Completed CBC w/Auto Diff [Complete Blood Count Auto Diff] Stat Lab 07/11/24 23:30 Completed CMP [Comprehensive Metabolic Panel] Stat Lab 07/11/24 23:30 Completed HIV Combo Stat Lab 07/11/24 23:30 Received Hepatitis C Ab Qual. W/ RFX Stat Lab 07/11/24 23:30 Received Lipase Stat Lab 07/11/24 23:30 Completed Medical Decision Narrative: 29-year-old male without significant past medical history presents for epigastric abdominal pain for the last couple of days. History was obtained via interactive discussion with patient, family, chart. On arrival, patient is [afebrile, hemodynamically stable, satting appropriately, alert, oriented x4, GCS 15], moving all extremities spontaneously. Full physical exam performed and significant for epigastric abdominal tenderness Differential includes but is not limited to gastritis, gastroenteritis, pancreatitis, cholecystitis. Patient was given Tylenol, GI cocktail, Pepcid, Zofran for symptomatic management and correction of underlying abnormalities. Workup initiated including CBC CMP lipase CT abdomen pelvis with IV contrast. On re-evaluation, patient reports some symptomatic improvement. Laboratory workup independently interpreted by me and significant for no significant leukocytosis, negative lipase, normal liver enzyme. Imaging independently interpreted by me and significant for nonobstructing left intrarenal calculus, otherwise unremarkable, no pancreatitis or biliary pathology. See radiology read for full review of final results. Given patient history, exam and workup, patient's presentation most likely represents possible gastritis. Patient was discharged in stable condition with instructions regarding symptomatic care and follow-up. Procedures Risk/Benefits of Procedure(s) Were Explained: Yes Critical Care Critical Care Time Critical Care Time: No
[2024-07-11 23:25] VITALS: BP 122/79; PULSE 84; RESP 16; TEMP 36.7; O2SAT 95; BMI 22.2
--- NOTE | 2024-07-11 23:36 | CT_ITS ---
PROCEDURE INFORMATION: Exam: CT Abdomen And Pelvis With Contrast Exam date and time: 07/12/2024 12:39 AM Age: 29 years old Clinical indication: Abdominal pain; Epigastric; Additional info: Epigastric pain, vomiting TECHNIQUE: Imaging protocol: Computed tomography of the abdomen and pelvis with contrast. Radiation optimization: All CT scans at this facility use at least one of these dose optimization techniques: automated exposure control; mA and/or kV adjustment per patient size (includes targeted exams where dose is matched to clinical indication); or iterative reconstruction. Contrast material: ISOVUE; Contrast volume: 75 ml; Contrast route: IV; COMPARISON: CT ABDOMEN PELVIS WO CON 06/10/2021 7:19 AM FINDINGS: Lungs: No acute finding. Liver: Normal. No mass. Gallbladder and biliary ducts: Normal. No calcified stones. No ductal dilation. Pancreas: Normal. No ductal dilation. Spleen: Normal. No splenomegaly. Adrenal glands: Normal. No mass. Kidneys and ureters: No hydronephrosis. Several left intrarenal calculi measuring up to 3 mm in size. Normal ureters. Stomach and bowel: Unremarkable. No obstruction. No mucosal thickening. Appendix: No evidence of appendicitis. Intraperitoneal space: Unremarkable. No free air. No significant fluid collection. Vasculature: Unremarkable. No abdominal aortic aneurysm. Lymph nodes: Unremarkable. No enlarged lymph nodes. Urinary bladder: Unremarkable as visualized. Reproductive: Unremarkable as visualized. Bones/joints: Unremarkable. No acute fracture. Soft tissues: Unremarkable. IMPRESSION: 1. No acute findings. 2. Nonobstructing left intrarenal calculi.
[2024-07-11 23:43] LABS: Basophils % 0.4 % (0.1-2.0); Eosinophils # 0.1 K/mm3 (0.0-0.4); Eosinophils % 1.3 % (0.1-12.0); Hemoglobin 14.9 g/dL (14.1-18.0); Lymphocytes # 3.5 K/mm3 (0.7-4.5); Lymphocytes % 36.4 % (10-50); Mean Corpuscular HGB Conc 33.9 g/dL (31.8-35.4); Mean Corpuscular Volume 82.6 fl (80-94); Mean Platelet Volume 10.2 fl (7.4-10.4); Monocytes # 0.8 K/mm3 (0.1-1.0); Monocytes % 8.1 % (1.7-9.3); Neutrophils # 5.1 K/mm3 (1.8-7.8); Neutrophils % 53.6 % (37.0-80.0); Platelet Count 264 K/mm3 (142-424); Red Blood Count 5.33 M/mm3 (4.60-6.20); White Blood Count 9.5 K/mm3 (4.8-10.8)
[2024-07-11 23:53] LABS: Alanine Aminotransferase 34 U/L (12-78); Albumin Level 5.2 g/dl (3.5-5.0); Albumin/Globulin Ratio 1.7 (1.1-1.8); Alkaline Phosphatase 70 U/L (38-126); Anion Gap 10.8 mEq/L (5-15); Aspartate Amino Transferase 27 U/L (17-59); Bilirubin,Total 1.1 mg/dl (0.2-1.3); Blood Urea Nitrogen 10 mg/dl (9-20); Calcium 10.1 mg/dl (8.4-10.2); Carbon Dioxide 28 mmol/L (22.0-30.0); Chloride 103 mmol/L (98-107); Creatinine Clearance Estimated 138 mL/min (50-200); Estimated Glomerular Filt Rate 116 ml/min (>60); GFR (African American) 140 ML/MIN (>60); Glucose 94 mg/dl (74-100); Lipase 49 U/L (23-300); Potassium 3.8 mmoL/L (3.5-5.1); Sodium 138 mmol/L (136-145); Total Protein,Serum 8.2 g/dl (6.3-8.2)
[2024-07-11] MEDS: 0.9 % SODIUM CHLORIDE 1000ML 1,000 ML 999 ML IV (23:54)
[2024-07-11] MEDS: BELLADONNA ALKALOIDS 60 ML ML PO (23:54)
[2024-07-11] MEDS: ONDANSETRON 4MG/2ML VIAL 4 MG IV (23:55)
[2024-07-11] MEDS: FAMOTIDINE 20MG/2ML VIAL 20 MG IV (23:55)
[2024-07-11] MEDS: ACETAMINOPHEN 500MG TAB 1000 MG PO (23:56)
[2024-07-12] MEDS: IOPAMIDOL-370 (76%);100ML BOTTLE 75 ML IV (00:46)
[2024-07-12] MEDS: SODIUM CHLORIDE 0.9% 10ML SYR (RAD ONLY) 10 ML IV (00:46)
[2024-07-12 02:31] VITALS: BP 103/60; PULSE 54; RESP 16; TEMP 36.6; O2SAT 96
--- NOTE | 2024-07-12 02:32 | PC.NURSE ---
IV removed. Catheter tip intact. Bleeding controlled.
[2024-07-12 06:25] LABS: HIV Combo NEGATIVE (Negative)
[2024-07-12 06:32] LABS: Hepatitis C Ab Qual. W/ RFX NEGATIVE (Negative)
== END 2024-07-12 02:33 | disposition home or self-care (01) ==
PROVIDERS: Emergency Provider Emergency Medicine; PCP Internal Medicine Adolescent Medicine
DX: R10.13 Epigastric pain (principal); R11.2 Nausea with vomiting, unspecified
CPT/HCPCS: 74177; 80053; 83690; 85025; 86803; 87389; 96361; 96374; 96375; 99285; J2405; J7030; Q9967; S0028

== ENCOUNTER 2024-08-19 17:58 | Emergency (ER) | payer BC, SELFPAY ==
--- OUTSIDE RECORDS SUMMARY | 2024-08-19 18:07 | XMS_ITS | Data Portability ---
Author Organization [facility] [place], [facility] [place] Address [address] [place] [address] Assessment No assessment recorded. Plan of Treatment Reminders Order Date Submit Date Provider Last Modified By Organization Details Last Modified Time Details Appointments None recorded. Lab None recorded. Referral None recorded. Procedures None recorded. Surgeries None recorded. Imaging None recorded. Medication Orders cephalexin 500 mg capsule [address], [address] [place] [address], [facility] [address], [address], 4 13:58:59 hydrocodone 5 mg-acetamin ophen 325 mg tablet 2023 024 [facility], [address] [place] [address], [facility], [place], [address], 4 09:41:44 Patient TargetsNo targets recorded. Patient InstructionsNo instructions recorded. Reason for Referral None Reported. Problems Name Problem SNOMED Code Status Onset Date Resolution Date Notes Provider Name and Address Organization Details Recorded Time Asthma [id number] Active 023 Sienna Leon oskar, [facility] [place] 03/17/2023 14:11:22 Problem Notes None recorded. Procedures Surgical History Date Name Laterality Status Provider Name and Address Organization Details Recorded Time 05/04/2023 Vasectomy completed Feliberto Mukherjee Jr, MD [address] [place] [address], [address], [place], [address], [facility] [place] 2023 14:12:30 Imaging Results None recorded. Procedure Notes None recorded. Medical Equipment None Reported. Allergies No known drug allergies Medications Name Sig Start Date Stop Date Status Note LastModified by Organization Details LastModified Time hydrocodone 5 mg-acetaminop hen 325 mg tablet Take 1 tablet every 6 hours by oral route. active Not Available Not Available No t Available cephalexin 500 mg capsule Take 1 capsule every 6 hours by oral route. 024 active Not Available Not Available Not Avai lable Vitals Date Recorded Body height Body mass index (BMI) Body weight Body temperature Provider Name and Address Organization Details Last Updated DateTime 03/17/2023 177.8 cm 22.2 kg/m2 83063.82 g 97.7 [degF] Sienna Leon [facility] [place] 03/17/2023 14:10:50 Date Recorded Body height Body mass index (BMI) Body weight Body temperature Provider Name and Address Organization Details Last Updated DateTime 05/04/2023 177.8 cm 22.2 kg/m2 91535.82 g 98 [degF] Erica Bishop [facility] [place] 05/04/2023 08:59:23 Social History Question Answer Notes LastModified by Organizat ion Details LastModified Time Tobacco Smoking Status Never Smoker Sienna Leon [facility] [place] 03/17/2023 14:11:58 What Is Your Level Of Alcohol Consumption? None [email or web address] Information not available 03/17/2023 Sex: Unknown Functional Status None recorded. Mental Status None recorded. Family History Relationship Description Onset Age of this Age Resolved Age Notes LastModified by Organization Details LastModified Time Brother Family history unknown [email or web address] Not available 2022 14:11:46 Father Family history unknown [email or web address] Not available 2022 14:11:46 Sister Family history unknown [email or web address] Not available 2022 14:11:46 Mother Family history unknown [email or web address] Not available 2022 14:11:46 Medical History No medical history recorded. Past Encounters Encounter ID Performer Location Encounter Start Date Encounter Closed Date Diagnosis/Indication Diagnosis SNOMED-CT Code Diagnosis ICD10 Code Diagnosis Note [id number] Feliberto Mukherjee Jr, MD [facility] [address] [place] [address] 03/17/2023 13:52:58 03/17/2023 14:15:59 Counseling for elective sterilization done [id number] 06876 Z30.2 we discussed the vasectomy procedure today and possible complicati ons including hematoma, epididymit is and infection. We discussed the anesthesia options and postoperat jhoan course. He was counseled that he is not considered sterile until he brings his back 2 semen samples that are negative. He would like to proceed under local. [id number] Feliberto Mukherjee Jr, MD [facility] [address] [place] [address] 05/04/2023 08:58:23 05/04/2023 09:36:37 Sterilization procedure done [id number] 43063 Z30.2 patient underwent bilateral vasectomy done under local anesthetic . Tolerated procedure well no complicati ons. He was discharged home with routine instructio ns and medication s. He is aware that he has not considered sterile until he brings back 2 semen samples. Health Concerns Section Related Observation LastModified by Organization Detai ls LastModified Time None Recorded Concern Status LastModified by Organization Details LastModified Time None Recorded Advance Directives Directive None Recorded Payers Encounter Date Sequence Insurance Name Policy Number Policy Fall Covered Member ID Fall Member ID Guarantor Name 03/17/2023 1 [id number] Aroldo Guillory [id number] Stephanie Guillory 05/04/2023 1 [id number] Aroldo Bobby Pastora [id number] Aroldo Guillory Notes Date Note Type Note Provider Name and Address Organization Details Recorded Time 03/17/2023 text/html Patient is a 27-year-old white female self-referred for vasectomy consultation. Patient is has 2 children. He states he and his have discussed sterilization options and have decided upon a vasectomy as their preferred method of choice. Patient read through the vasectomy materials today. He denies any testicular abnormalities or trauma. Feliberto Mukherjee Jr, MD [address] [place] [address], [address], [place], [address], [facility] [place] [facility] [place] 03/24/2023 12:23:13 05/04/2023 text/html 28-year-old whit e male presents for vasectomy today. Vas consultation was March 17. Feliberto Mukherjee Jr, MD [address] [place] [address], [address], [place], [address], [facility] [place] [facility] [place] 2023 14:13:37
[2024-08-19 18:09] VITALS: BP 133/85; PULSE 66; RESP 18; TEMP 36.7; O2SAT 100; BMI 21.5
[2024-08-19 18:14] VITALS: BP 128/76; PULSE 61; O2SAT 96
--- NOTE | 2024-08-19 18:34 | HMH.EDGENADL ---
Discharge Plan Disposition Patient Disposition: Home, Self-Care Condition: Good Prescriptions Prescriptions: No Action propranolol 10 mg tablet 10 mg PO DAILY hydroxyzine HCl 25 mg tablet 25 mg PO DAILY escitalopram oxalate 10 mg tablet 10 mg PO DAILY Patient Comments: TAKE 1 TABLET BY MOUTH ONCE DAILY FOR 30 DAYS Referrals Follow up/Referrals: Gunjan Barrios APRN [Primary Care Provider] - See instructions Activity Restrictions/Add. Instructions Additional Instructions/Restrictions: Have sutures removed in 7 days. Be careful not to pop sutures out. Keep covered and clean with soap and water. Clinical Impressions Clinical Impression: Laceration Instructions Patient Instructions: DI for Laceration Repair Print Language Print Language: Portuguese Discharge ED Provider: Shay Duke [facility] HPI <Chikis Juarez (ED), WELDING MACHINE OPERATOR [employer] - Last Filed: 08/19/24 18:42> General Chief complaint: Wound/Laceration Stated complaint: AO 08-19 left hand thumb cut Time Seen by Provider: 08/19/24 18:01 Mode of Arrival: Ambulatory Source of Information: Patient Description of Symptoms (Recalled from ER Triage Doc. by RN): LACERATION TO LEFT THUMB, UNKNOWN TETANUS History of Present Illness HPI narrative: This is a 29-year-old male who presents to the ED today for a left thumb laceration that happened today while he was cleaning fish. He cut it with his knife. He does not know if he is up-to-date on tetanus so we will give him 1 today. He has full movement of his left thumb. Bleeding has been controlled. Related Data Home Medications ?Medication ?Instructions ?Recorded ?Confirmed escitalopram oxalate 10 mg tablet 10 mg PO DAILY 08/19/24 08/19/24 hydroxyzine HCl 25 mg tablet 25 mg PO DAILY 08/19/24 08/19/24 propranolol 10 mg tablet 10 mg PO DAILY 08/19/24 08/19/24 Allergies Allergy/AdvReac Type Severity Reaction Status Date / Time No Known Allergies Allergy Verified 06/18/24 19:07 PFS <Chikis Juarez (ED), WELDING MACHINE OPERATOR [employer] - Last Filed: 08/19/24 18:42> [facility] Disclaimer: The information contained in this section may have been updated after the patient was seen, as this information can be updated by other users. Medical History Kidney stone Asthma Social History Smoking Status: Never smoker alcohol intake: never substance use type: denies use current occupational status: employed Travel in the last 8 weeks: Inside the [place] housing[place] house Have you lived/traveled outside US in past 30 days?: No Contact w/someone who lives/traveled outside US past 30 days?: No Exposure to someone with infectious disease in past 14 days?: No Do you have a fever (greater than 100.4 F or 38 C)?: No Have you tested positive for COVID-19: No Exposed to someone with COVID-19 in past 14 days?: No Do you have a sore throat?: No Do you have a cough?: No Do you have any weakness?: No Do you have any diarrhea?: No Are you experiencing any unusual bleeding?: No Do you have any muscle aches/pain?: No Do you have any abdominal pain?: No Are you experiencing loss of taste or smell?: No Other Medical History Have you received the Flu Vaccine for this season: No Have you received the Pneumonia Vaccine: No <Chikis Juarez (ED), WELDING MACHINE OPER[employer] - Last Filed: 08/19/24 18:42> ROS Obtained: Yes Systems reviewed as appropriate & no additional complaints except as documented Constitutional Constitutional: Reports as per HPI Physical Exam <Chikis Juarez (ED), WELDING MACHINE OPERATOR [employer] - Last Filed: 08/19/24 18:42> General General appearance: alert and in no apparent distress Head Head exam: atraumatic and normocephalic Eye Eye exam: Present normal appearance, PERRL and EOMI ENT ENT exam: Present normal exam and normal oropharynx Neck Neck exam: Present normal inspection, full ROM and trachea midline Respiratory Respiratory exam: Present normal lung sounds bilaterally Cardiovascular Cardiovascular exam: Present regular rate, normal rhythm, normal heart sounds, +S1 and +S2 Extremities Exam Extremities exam: Present normal inspection, full ROM and normal capillary refill Neurological Exam Neurological exam: Present alert and oriented X3 Skin Skin exam: Present warm, dry and other (thumb laceration ) <Shay Duke MD - Last Filed: 08/19/24 20:02> Abdominal Exam Abdominal exam: Present soft; Absent distention, tenderness or pulsatile mass Medical Decision Making <Chikis Juarez (ED), WELDING MACHINE OPERATOR [employer] - Last Filed: 08/19/24 18:42> Medical Records Screening: Per USPSTF and CDC recommendations, given the prevalence of disease in our region, it is our hospital?s policy to screen for HIV and viral Hepatitis for all patients aged 18 and over and those with ongoing risk factors. Luis Inquiry Pt receiving controlled substance: No Luis was queried for this patient: No Vital Signs: 08/19/24 18:09 08/19/24 18:14 08/19/24 18:45 Temperature 98.0 F 98 F Temperature Source Oral Pulse Rate 61 70 Pulse Rate [Radial] 66 Respiratory Rate 18 16 Blood Pressure 128/76 126/69 Blood Pressure [Right Arm] 133/85 Blood Pressure Mean [Right Arm] 101 Blood Pressure Source [Right Arm] Automatic Cuff Blood Pressure Position [Right Arm] Sitting 02 Sat by Pulse Oximetry 100 96 Oxygen Delivery Method Room Air Room Air Orders (Tests/Meds): ED MEDICATIONS Discontinued Medications Generic Name Dose Route Start Last Admin Trade Name Freq PRN Reason Stop Dose Admin Tetanus/Reduced Diphtheria/Acell Pertussis 0.5 ml 08/19/24 18:36 08/19/24 18:42 Tet/Diphth/Pert-Adult 0.5ml Syringe IM 08/19/24 18:37 0.5 ml .ONCE ONE Administration Medical Decision Narrative: Insert review patient is a 29-year-old male presenting to the emergency department for evaluation of laceration to left thumb. Patient is hemodynamically stable and nontoxic-appearing upon arrival, afebrile. Differential diagnosis includes laceration. Patient has left thumb laceration without complication. Laceration was irrigated and sutures were placed. Patient has been given instructions to have sutures removed in 7 days. Patient is safe for discharge home <Shay Duke MD - Last Filed: 08/19/24 20:02> Medical Records Medical records reviewed: Yes I reviewed the patient's medical records. Vital Signs: 08/19/24 18:09 08/19/24 18:14 08/19/24 18:45 Temperature 98.0 F 98 F Temperature Source Oral Pulse Rate 61 70 Pulse Rate [Radial] 66 Respiratory Rate 18 16 Blood Pressure 128/76 126/69 Blood Pressure [Right Arm] 133/85 Blood Pressure Mean [Right Arm] 101 Blood Pressure Source [Right Arm] Automatic Cuff Blood Pressure Position [Right Arm] Sitting 02 Sat by Pulse Oximetry 100 96 Oxygen Delivery Method Room Air Room Air Orders (Tests/Meds): ED MEDICATIONS Discontinued Medications Generic Name Dose Route Start Last Admin Trade Name Antolin PRN Reason Stop Dose Admin Tetanus/Reduced Diphtheria/Acell Pertussis 0.5 ml 08/19/24 18:36 08/19/24 18:42 Tet/Diphth/Pert-Adult 0.5ml Syringe IM 08/19/24 18:37 0.5 ml .ONCE ONE Administration Medical Decision Narrative: Insert review patient is a 29-year-old male presenting to the emergency department for evaluation of laceration to left thumb. Patient is hemodynamically stable and nontoxic-appearing upon arrival, afebrile. Differential diagnosis includes laceration. Patient has left thumb laceration without complication. Laceration was irrigated and sutures were placed. Patient has been given instructions to have sutures removed in 7 days. Patient is safe for discharge home I was consulted by the KIANA, and we discussed the complexity of the problems being addressed. I approved the treatment and management plan for this patient's care in the Emergency Department, thus performing a substantive portion of the medical decision making. Shay Duke MD Procedures <Chikis Juarez (ED), WELDING MACHINE OPERATOR [employer] - Last Filed: 08/19/24 18:42> Laceration Laceration 1: Site: thumb Size (cm): 1.5 Description: flap Depth: simple, single layer Local Anesthetic: lidocaine 2% Amount of anesthesia used (mL): 1 Skin layer closed with: vicryl Size (cm): 5-0 Number of sutures: 4 Technique: simple, interrupted Critical Care <Chikis Juarez (ED), WELDING MACHINE OPERATOR [employer] - Last Filed: 08/19/24 18:42> Critical Care Time Critical Care Time: No
[2024-08-19] MEDS: TET/DIPHTH/PERT-ADULT 0.5ML SYRINGE 0.5 ML IM (18:42)
[2024-08-19 18:45] VITALS: BP 126/69; PULSE 70; RESP 16; TEMP 36.6; O2SAT 96
== END 2024-08-19 18:51 | disposition home or self-care (01) ==
PROVIDERS: Emergency Provider Emergency Medicine; PCP Nurse Practitioner Family
DX: S61.012A Laceration without foreign body of left thumb without damage to nail, initial encounter (principal); W26.0XXA Contact with knife, initial encounter; Z23 Encounter for immunization
CPT/HCPCS: 12001; 90471; 90715; 99283

== ENCOUNTER 2024-12-13 18:04 | Outpatient (CLI) | payer BC, SELFPAY ==
--- NOTE | 2024-12-13 | XR_ITS ---
PROCEDURE INFORMATION: Exam: XR Right Knee Exam date and time: 12/13/2024 6:20 PM Age: 29 years old Clinical indication: Pain; Weakness; Knee; Right TECHNIQUE: Imaging protocol: Radiologic exam of the right knee. Views: 3 views. COMPARISON: No relevant prior studies available. FINDINGS: Bones/joints: Normal. No fracture evident Soft tissues: Normal. IMPRESSION: No acute findings.
== END 2024-12-13 23:59 | disposition home or self-care (01) ==
LOC: RAD 18:12
PROVIDERS: PCP Nurse Practitioner Family; Visit Provider Nurse Practitioner Family
DX: M25.561 Pain in right knee (principal)
CPT/HCPCS: 73562

== ENCOUNTER 2024-12-19 13:46 | Outpatient (CLI) | payer BC, SELFPAY ==
--- NOTE | 2024-12-19 13:48 | MR_ITS ---
FINAL REPORT TECHNIQUE: Multiplanar and multisequence imaging the right knee was obtained without contrast. CLINICAL HISTORY: medial sided RT KNEE PAIN. knee instability. FINDINGS: Bones: There is no acute fracture or marrow edema. The joint space is preserved. There are no full thickness cartilage defects. Menisci: No meniscal tear is present. Ligaments: No cruciate or collateral ligament tear is present. Tendons/Muscles: The quadriceps and patellar tendons are within normal limits. The biceps femoris tendon and iliotibial tract are intact. The popliteus tendon is normal. Other: There is a small joint effusion. Remaining soft tissues are normal. IMPRESSION: Small joint effusion, otherwise unremarkable exam. Reviewed, Interpreted and Dictated by Yoselin Landis MD Transcribed by Rebeca Silveira Authenticated and [facility]
== END 2024-12-19 23:59 | disposition home or self-care (01) ==
LOC: RAD 13:46
PROVIDERS: PCP Nurse Practitioner Family; Visit Provider Nurse Practitioner Family
DX: M25.461 Effusion, right knee (principal); M25.561 Pain in right knee
CPT/HCPCS: 73721